=== PATIENT | male | born 2000 | race Caucasian/White ===

== ENCOUNTER 2018-12-29 21:44 | Emergency (ER) | payer SELFPAY ==
[~2018-12-29] VITALS: Ht 182.9 cm; Wt 70.4 kg
[2018-12-29] MEDS ORDERED: normal saline 1000ml 1,000 ML IVB ONE (22:04)
[2018-12-29 22:18] LABS: BASOPHILS % (AUTO) 0.1 % (0-1); EOSINOPHILS # (AUTO) 0.1 X10'3 (0-0.9); EOSINOPHILS % (AUTO) 0.7 % (0-6); HEMATOCRIT 49.7 % (42.0-52.0); HEMOGLOBIN 17.2 g/dl (14.0-17.9); LYMPHOCYTES # (AUTO) 1.2 X10'3 (1.1-4.8); LYMPHOCYTES % (AUTO) 9.3 % (21-51); MEAN CORPUSCULAR HEMOGLOBIN 30.4 PG (27.0-31.0); MEAN CORPUSCULAR HGB CONC 34.7 g/dL (33.0-36.5); MEAN CORPUSCULAR VOLUME 87.7 FL (78-98); MEAN PLATELET VOLUME 8.4 FL (7.4-10.4); MONOCYTES # (AUTO) 0.6 X10'3 (0-0.9); MONOCYTES % (AUTO) 4.9 % (2-12); NEUTROPHILS # (AUTO) 10.5 X10'3 (1.8-7.7); PLATELET COUNT 207 X10'3 (140-440); RED BLOOD COUNT 5.66 X10'6 (4.70-6.10); RED CELL DISTRIBUTION WIDTH 12.4 % (11.5-14.5); WHITE BLOOD COUNT 12.4 X10'3 (4.5-11.0)
[2018-12-29 22:24] LABS: ALANINE AMINOTRANSFERASE 27 U/L (12-78); ALBUMIN 4.7 G/DL (3.4-5.0); ALBUMIN/GLOBULIN RATIO 1.3 (1.1-1.5); ALKALINE PHOSPHATASE 128 IU/L (20-180); ANION GAP 13 (8-16); ASPARTATE AMINO TRANSFERASE 16 U/L (10-37); BILIRUBIN,TOTAL 2.7 MG/DL (0.1-1.0); BLOOD UREA NITROGEN 22 MG/DL (7-18); BUN/CREATININE RATIO 24.7 (5.4-32.0); CALCIUM 9.6 MG/DL (8.5-10.1); CHLORIDE 104 MMOL/L (99-107); CREATININE 0.89 MG/DL (0.60-1.10); GLUCOSE 92 MG/DL (70-104); LIPASE 75 U/L (73-393); SODIUM 141 MMOL/L (135-145); TOTAL CARBON DIOXIDE 23.9 MMOL/L (24-32); TOTAL PROTEIN 8.4 G/DL (6.4-8.2); eGFR > 90 ML/MIN
[2018-12-29] MEDS ORDERED: pantoprazole 40 MG vial IV ONE (22:45)
[2018-12-29] MEDS ORDERED: ondansetron/PF 4mg/2ml inj IV ONE (22:45)
[2018-12-29] MEDS ORDERED: famotidine/PF 10 mg/ml inj IV ONE (22:45)
[2018-12-29 22:59] LABS: CLARITY,URINE CLEAR (Clear); COLOR,URINE YELLOW (Yellow); GLUCOSE, URINE NEGATIVE (Neg); KETONES,URINE 15 mg/dl (Neg); LEUKOCYTE ESTERASE ,URINE NEGATIVE (Neg); NITRITES, URINE NEGATIVE (Neg); OCCULT BLOOD,URINE NEGATIVE (Neg); PROTEIN,URINE NEGATIVE (Neg); UROBILINOGEN,URINE 0.2 E.U/dL (0.2-1.0)
[2018-12-29 23:02] LABS: UA COLLECTION TYPE CLN CATCH MIDSTREAM
[2018-12-29] MEDS ORDERED: ONDA4TAB6 PO (23:45)
[2018-12-30] VITALS: BP 111/61
== END 2018-12-30 00:01 | disposition home or self-care (01) ==
LOC: ER 21:45
DX: K52.9 Noninfective gastroenteritis and colitis, unspecified (principal); Z79.899 Other long term (current) drug therapy
CPT/HCPCS: 36415; 80053; 81003; 83690; 85025; 96361; 96374; 96375; 99283; C9113; J2405; J3490; J7030

== ENCOUNTER 2019-07-23 13:19 | Emergency (ER) | payer MEDICAID ==
[~2019-07-23] VITALS: Ht 182.9 cm; Wt 68.0 kg
[~2019-07-23 13:19] MED LIST: ONDA4TAB6 PO
[2019-07-23 13:50] LABS: CLARITY,URINE CLEAR (Clear); COLOR,URINE STRAW (Yellow); GLUCOSE, URINE NEGATIVE (Neg); KETONES,URINE NEGATIVE (Neg); LEUKOCYTE ESTERASE ,URINE NEGATIVE (Neg); NITRITES, URINE NEGATIVE (Neg); OCCULT BLOOD,URINE TRACE-INTACT (Neg); PROTEIN,URINE NEGATIVE (Neg); UROBILINOGEN,URINE 0.2 E.U/dL (0.2-1.0)
[2019-07-23 13:52] LABS: UA COLLECTION TYPE CLN CATCH MIDSTREAM
[2019-07-23 14:02] LABS: MUCUS STRANDS FEW /LPF (Neg); SQUAMOUS EPITHELIAL CELL,UR FEW /LPF (FEW); WBC,URINE 0-4 /HPF (0-4)
[2019-07-23 14:04] LABS: BACTERIA,URINE FEW /HPF (Neg); RBC,URINE 0-2 /HPF (0-2)
[2019-07-23] MEDS ORDERED: CefTRIAXone 250MG IM Kit w/LIDOcaine IM ONE (14:10)
[2019-07-23] MEDS ORDERED: azithromycin 250mg tablet PO ONE (14:10)
[2019-07-23 15:32] VITALS: BP 105/86
== END 2019-07-23 15:34 | disposition home or self-care (01) ==
LOC: ER 13:20
DX: N34.2 Other urethritis (principal); Z79.899 Other long term (current) drug therapy
CPT/HCPCS: 36415; 81001; 87491; 87591; 96372; 99283; J0696

== ENCOUNTER 2019-07-29 15:42 | Emergency (ER) | payer MEDICAID ==
[~2019-07-29] VITALS: Ht 182.9 cm; Wt 68.2 kg
[2019-07-29 15:44] VITALS: BP 140/81
--- NOTE | 2019-07-29 15:55 | NUR ---
Per Dr Villasenor, no Cardiac workup ordered at time of triage.
[2019-07-29] MEDS ORDERED: VALA100031 PO (17:16)
== END 2019-07-29 17:21 | disposition home or self-care (01) ==
LOC: ER 15:42
DX: R07.89 Other chest pain (principal); R20.0 Anesthesia of skin; Z79.2 Long term (current) use of antibiotics
CPT/HCPCS: 71045; 93005; 99283